=== PATIENT | female | born 1960 | race American Indian/Alaskan Native ===

== ENCOUNTER 2017-04-05 01:56 | Emergency (ER) | payer OTHER ==
[2017-04-05] MEDS ORDERED: Sodium Chloride 0.9% 1,000 ML IV ONE (02:07)
[2017-04-05] MEDS ORDERED: Ondansetron 4 MG/2 ML SDV IVPUSH ONE (02:07)
--- NOTE | 2017-04-05 02:09 | EDM.PDOC ---
ED HPI GENERAL MEDICAL PROBLEM - General Chief Complaint: Gastrointestinal Problem Stated Complaint: VOMITING AND DIARRHEA Time Seen by Provider: 04/05/17 02:09 Source of Information: Reports: Patient - History of Present Illness INITIAL COMMENTS - FREE TEXT/NARRATIVE: HISTORY AND PHYSICAL: History of present illness: [Patient presents with nausea vomiting diarrhea which began several hours after eating pizza, she attributes this to the pizza she has no fever chills sweats no chest pain shortness breath headache dizziness palpitation no bowel or urine symptoms Symptoms began at 7 PM tonight she states she has had too numerous to count watery stools and 4-8 episodes of vomiting Continued nausea on her arrival this is resolved since Zofran ] Review of systems: As per history of present illness and below otherwise all systems reviewed and negative. Past medical history: As per history of present illness and as reviewed below otherwise noncontributory. Surgical history: As per history of present illness and as reviewed below otherwise noncontributory. Social history: No reported history of drug or alcohol abuse. Family history: As per history of present illness and as reviewed below otherwise noncontributory. Physical exam: HEENT: Atraumatic, normocephalic, pupils reactive, negative for conjunctival pallor or scleral icterus, mucous membranes moist, throat clear, neck supple, nontender, trachea midline. Lungs: Clear to auscultation, breath sounds equal bilaterally, chest nontender. Heart: S1S2, regular, negative for clicks, rubs, or JVD. Abdomen: Soft, nondistended, nontender. Negative for masses or hepatosplenomegaly. Negative for costovertebral tenderness. Pelvis: Stable nontender. Genitourinary: Deferred. Rectal: Deferred. Extremities: Atraumatic, negative for cords or calf pain. Neurovascular unremarkable. Neuro: Awake, alert, oriented. Cranial nerves II through XII unremarkable. Cerebellum unremarkable. Motor and sensory unremarkable throughout. Exam nonfocal. Diagnostics: [CBC CMP amylase lipase UA with culture ] Therapeutics: [1 L normal saline bolus Zofran 8 mg IV Proton X 80 mg IV ] Impression: [Gastroenteritis Nausea vomiting diarrhea] Definitive disposition and diagnosis as appropriate pending reevaluation and review of above. - Related Data Allergies Allergy/AdvReac Type Severity Reaction Status Date / Time No Known Allergies Allergy Verified 04/05/17 02:08 Home Meds: Home Meds Albuterol Sulfate [Albuterol Sulfate HFA] 1 - 2 inh INH ASDIRECTED 06/11/14 [ History] Calcium Carbonate [Calcium] 600 mg PO 04/05/17 [History] Magnesium 250 mg PO 04/05/17 [History] Topiramate [Topiramate ER] 25 mg PO 04/05/17 [History] Social & Family History - Tobacco Use Smoking Status *Q: Never Smoker Years of Tobacco use: 40 Used Tobacco, but Quit: Yes - Alcohol Use Days Per Week of Alcohol Use: 1 Number of Drinks Per Day: 6 Total Drinks Per Week: 6 - Recreational Drug Use Recreational Drug Use: No Drug Use in Last 12 Months: No ED ROS GENERAL - Review of Systems Review Of Systems: ROS reveals no pertinent complaints other than HPI. ED EXAM, GENERAL - Physical Exam Exam: See Below Course - Vital Signs Last Recorded V/S: Last Vital Signs Temp 97.0 F 04/05/17 02:10 Pulse 95 04/05/17 02:10 Resp 16 04/05/17 02:10 BP 128/90 04/05/17 02:10 Pulse Ox 95 04/05/17 02:10 - Orders/Labs/Meds Orders: Active Orders 24 hr Category Date Time Status CULTURE URINE [RM] Stat Lab 04/05/17 02:38 Received Labs: Laboratory Tests 04/05/17 04/05/17 04/05/17 Range/Units 02:38 02:38 02:38 WBC 7.26 (4.0-11.0) K/uL RBC 4.46 (4.30-5.90) M/uL Hgb 13.8 (12.0-16.0) g/dL Hct 40.7 (36.0-46.0) % MCV 91.3 (80.0-98.0) fL MCH 30.9 (27.0-32.0) pg MCHC 33.9 (31.0-37.0) g/dL RDW Std Deviation 45.3 (28.0-62.0) fl RDW Coeff of Massiel 14 (11.0-15.0) % Plt Count 185 (150-400) K/uL MPV 9.60 (7.40-12.00) fL Neut % (Auto) 88.4 H (48.0-80.0) % Lymph % (Auto) 6.3 L (16.0-40.0) % [place] % (Auto) 4.1 (0.0-15.0) % Eos % (Auto) 1.1 (0.0-7.0) % Baso % (Auto) 0.1 (0.0-1.5) % Neut # (Auto) 6.4 H (1.4-5.7) K/uL Lymph # (Auto) 0.5 L (0.6-2.4) K/uL Calvert # (Auto) 0.3 (0.0-0.8) K/uL Eos # (Auto) 0.1 (0.0-0.7) K/uL Baso # (Auto) 0.0 (0.0-0.1) K/uL Nucleated RBC % 0.0 /100WBC Nucleated RBCs # 0 K/uL Sodium 141 (136-146) mmol/L Potassium 4.2 (3.5-5.1) mmol/L Chloride 108 (98-110) mmol/L Carbon Dioxide 24 (21-31) mmol/L BUN 19 (6.0-23.0) mg/dL Creatinine 0.9 (0.6-1.5) mg/dL Est Cr Clr Drug Dosing 66.12 mL/min Estimated GFR (MDRD) > 60.0 ml/min Glucose 105 (60-110) mg/dL Calcium 9.3 (8.8-10.8) mg/dL Total Bilirubin 0.5 (0.1-1.5) mg/dL AST 21 (5-40) IU/L ALT 16 (8-54) IU/L Alkaline Phosphatase 60 (40-150) Total Protein 8.3 H (6.0-8.0) g/dL Albumin 4.4 (3.5-5.0) g/dL Globulin 3.9 H (2.0-3.5) g/dL Albumin/Globulin Ratio 1.1 L (1.3-2.8) Amylase 48 (10-90) U/L Lipase 30 (7-80) U/L Urine Color YELLOW Urine Appearance HAZY Urine pH 5.5 (5.0-8.0) Ur Specific [place] 1.025 (1.001-1.035) Urine Protein NEGATIVE (NEGATIVE) mg/dL Urine Glucose (UA) NEGATIVE (NEGATIVE) mg/dL Urine Ketones NEGATIVE (NEGATIVE) mg/dL Urine Occult Blood MODERATE (NEGATIVE) Urine Nitrite NEGATIVE (NEGATIVE) Urine Bilirubin NEGATIVE (NEGATIVE) Urine Urobilinogen 0.2 (<2.0) EU/dL Ur Leukocyte Esterase MODERATE (NEGATIVE) Urine RBC 1-2 (0-2/HPF) Urine WBC 3-5 (0-5/HPF) Ur Epithelial Cells FEW (NONE-FEW) Urine Bacteria FEW (NEGATIVE) Urinalysis Comment Meds: Medications Discontinued Medications Generic Name Dose Route Start Last Admin Trade Name Freq PRN Reason Stop Dose Admin Sodium Chloride 1,000 mls @ 999 mls/hr 04/05/17 02:07 04/05/17 02:41 Normal Saline IV 04/05/17 03:07 999 mls/hr STAT ONE Administration Ondansetron HCl 8 mg 04/05/17 02:07 04/05/17 02:41 Zofran IVPUSH 04/05/17 02:08 8 mg ONETIME ONE Administration Pantoprazole Sodium 80 mg 04/05/17 02:55 04/05/17 03:02 Protonix Iv IVPUSH 04/05/17 02:56 80 mg .BOLUS ONE Administration Departure - Departure Time of Disposition: 03:45 Disposition: Home, Self-Care 01 Condition: Good Clinical Impression: Gastroenteritis - Discharge Information Referrals: PCP,None [Primary Care Provider] - Forms: ED Department Discharge Additional Instructions: The following information is given to patients seen in the emergency department who are being discharged to home. This information is to outline your options for follow-up care. We provide all patients seen in our emergency department with a follow-up referral. The need for follow-up, as well as the timing and circumstances, are variable depending upon the specifics of your emergency department visit. If you don't have a primary care physician on staff, we will provide you with a referral. We always advise you to contact your personal physician following an emergency department visit to inform them of the circumstance of the visit and for follow-up with them and/or the need for any referrals to a consulting specialist. The emergency department will also refer you to a specialist when appropriate. This referral assures that you have the opportunity for follow-up care with a specialist. All of these measure are taken in an effort to provide you with optimal care, which includes your follow-up. Under all circumstances we always encourage you to contact your private physician who remains a resource for coordinating your care. When calling for follow-up care, please make the office aware that this follow-up is from your recent emergency room visit. If for any reason you are refused follow-up, please contact the [facility] emergency department at and asked to speak to the emergency department charge nurse. - My Orders Last 24 Hours: My Active Orders 04/05/17 02:38 CULTURE URINE [RM] Stat - Assessment/Plan Last 24 Hours: My Active Orders 04/05/17 02:38 CULTURE URINE [RM] Stat
[2017-04-05] MEDS ORDERED: Pantoprazole 40 MG Vial IVPUSH ONE (02:55)
[2017-04-05 03:12] LABS: CHLORIDE,CL 108 mmol/L (98-110); SODIUM,NA 141 mmol/L (136-146)
[2017-04-05 04:06] VITALS: BP 127/83
== END 2017-04-05 04:11 | disposition home or self-care (01) ==
LOC: MW.ED 01:56
DX: K52.9 Noninfective gastroenteritis and colitis, unspecified (principal); Z87.891 Personal history of nicotine dependence
CPT/HCPCS: 36415; 80053; 81001; 82150; 83690; 85025; 87086; 96361; 96374; 96375; 99284; C9113; J2405; J7040; 99283

== ENCOUNTER 2018-08-14 13:30 | Observation (INO) | payer OTHER ==
--- NOTE | 2018-08-14 14:31 | CT ---
CT of the abdomen and pelvis with and without contrast. HISTORY: Right lower quadrant pain TECHNIQUE: Axial CT images were obtained of the abdomen and pelvis before and following administration of 100 mL of Isovue-370 in the left antecubital fossa without complication. Coronal and sagittal reconstructions obtained. FINDINGS: There is atelectasis within the left lung base. No pleural effusion. Tiny cyst within the left hepatic lobe. Focal fatty infiltration near the falciform ligament. The gallbladder, spleen, and pancreas appear normal. Mild nodular thickening of the adrenal glands. There is no bulky retroperitoneal lymphadenopathy or abdominal ascites. The kidneys enhance and function symmetrically without evidence of obstructive uropathy. The large and small bowel are normal in caliber without evidence of obstruction. The appendix is enlarged with periappendiceal stranding and a trace fluid. No evidence of an abscess or perforation at this time. Urinary bladder is minimally filled. Uterine fibroids are noted. No bulky pelvic lymphadenopathy. No suspicious osseous abnormalities identified. IMPRESSION: 1. Acute appendicitis.
[2018-08-14] MEDS ORDERED: cefOXitin 2 GM in Premix Bag 1 BAG IV ONE (15:01)
[2018-08-14] MEDS ORDERED: Propofol 200 MG/20 ML SDV ONE ×2 (15:03)
[2018-08-14] MEDS ORDERED: Succinylcholine 200 MG/10 ML MDV ONE (15:03)
[2018-08-14] MEDS ORDERED: Lidocaine 2% 5 ML SDV ONE (15:03)
[2018-08-14] MEDS ORDERED: fentaNYL 250 MCG/5 ML SDV ONE (15:03)
[2018-08-14] MEDS ORDERED: Midazolam 1 MG/ML 2 ML SDV ONE (15:03)
--- NOTE | 2018-08-14 15:03 | PCM.PREANE ---
Preanesthetic Assessment - Anesthesia/Transfusion/Family Hx Anesthesia History: Prior Anesthesia Without Reaction Other Type of Anesthesia Reaction Comment: Denies any known problem in past, no known family history of problems Family History of Anesthesia Reaction: No - Review of Systems General: No Symptoms Pulmonary: No Symptoms Cardiovascular: No Symptoms Gastrointestinal: Abdominal Pain - Physical Assessment NPO Status Date: 08/14/18 (solid foods <> 24 hr, clear liq within the last hr) ASA Class: 2 Mental Status: Alert & Oriented x3 Airway Class: Mallampati = 2 Dentition: Reports: Bridge (entire maxillary dentition) ROM/Head Extension: Full Lungs: Clear to Auscultation, Normal Respiratory Effort Cardiovascular: Regular Rate, Regular Rhythm - Allergies Allergies/Adverse Reactions: Allergies Allergy/AdvReac Type Severity Reaction Status Date / Time No Known Allergies Allergy Verified 04/05/17 02:08 - Blood Blood Available: No - Anesthesia Plan Pre-Op Medication Ordered: None - Acknowledgements Anesthesia Type Planned: General Anesthesia Pt an Appropriate Candidate for the Planned Anesthesia: Yes Alternatives and Risks of Anesthesia Discussed w Pt/Guardian: Yes Pt/Guardian Understands and Agrees with Anesthesia Plan: Yes Additional Comments: PMH: hx of lung cancer, s/p chemo and rarx, in remission; post menopausal PLAN: get PreAnesthesia Questionnaire HEENT History: Reports: None Cardiovascular History: Reports: None Respiratory History: Reports: None Gastrointestinal History: Reports: None Genitourinary History: Reports: None HISTOLOGY TEACHER History: Reports: None Musculoskeletal History: Reports: None Neurological History: Reports: None Psychiatric History: Reports: None Endocrine/Metabolic History: Reports: None Hematologic History: Reports: None Immunologic History: Reports: None Oncologic (Cancer) History: Reports: Lung Dermatologic History: Reports: None - Infectious Disease History Infectious Disease History: Reports: None - Past Surgical History Head Surgeries/Procedures: Reports: None HEENT Surgical History: Reports: None Female Surgical History: Reports: None - HOME MEDS Home Medications: Home Meds Albuterol Sulfate [Albuterol Sulfate HFA] 1 - 2 inh INH ASDIRECTED 06/11/14 [ History] Calcium Carbonate [Calcium] 600 mg PO 04/05/17 [History] Magnesium 250 mg PO 04/05/17 [History] Topiramate [Topiramate ER] 25 mg PO 04/05/17 [History]
[2018-08-14] MEDS ORDERED: Rocuronium 100 MG/10 ML MDV ONE (15:05)
[2018-08-14] MEDS ORDERED: Octyl 2-Cyanoacrylate 1 Tube ONE (15:06)
[2018-08-14] MEDS ORDERED: Bupivacaine 25%/EPINEPHrine/PF 30 ML ONE (15:07)
[2018-08-14] MEDS ORDERED: cefOXitin 1 GM Vial ONE ×2 (15:20→15:26)
[2018-08-14] MEDS ORDERED: Dexamethasone 4 MG/ML 5 ML MDV ONE (15:30)
[2018-08-14] MEDS ORDERED: Ondansetron 4 MG/2 ML SDV ONE (15:35)
[2018-08-14] MEDS ORDERED: Glycopyrrolate 0.2 MG/ML SDV ONE (15:46)
[2018-08-14] MEDS ORDERED: Neostigmine Methylsulfate 1 MG/ML 5 ML Syringe ONE (15:46)
[2018-08-14] MEDS ORDERED: fentaNYL 100 MCG/2 ML SDV IVPUSH PRN (15:57)
[2018-08-14] MEDS ORDERED: Ketorolac 30 MG/ML SDV ONE (16:38)
[2018-08-14] MEDS ORDERED: Ondansetron 4 MG/2 ML SDV IVPUSH PRN (17:32)
[2018-08-14] MEDS ORDERED: Docusate Sodium 100 MG Cap PO PRN (17:33)
--- NOTE | 2018-08-14 17:42 | PCM.OPNOTE ---
- General Post-Op/Procedure Note Date of Surgery/Procedure: 08/14/18 Operative Procedure(s): lap appendectomy Findings: appendix is completely engulfed by surrounding organs, and necrotic on proximal 1/2; gross perforation is not observed; [id number] Pre Op Diagnosis: acute appendicitis Post-Op Diagnosis: Same Anesthesia Technique: General ET Tube Primary Surgeon: Modesto Sebastian Pathology: sent Complications: None Condition: Good Free Text/Narrative:: Intake & Output 08/14/18 08/14/18 08/14/18 06:59 14:59 22:59 Output Total 100 Balance -100
[2018-08-14] MEDS ORDERED: Morphine 2 MG/ML Syringe IV PRN (17:45)
[2018-08-14] MEDS ORDERED: cefOXitin 1 GM in Premix Bag 1 BAG IV SCH (17:45)
--- NOTE | 2018-08-14 17:45 | PCM.SN ---
- Free Text/Narrative Note: pt seen, chart reviewed; ct > acute appendicitis; pt would benefit from urgent surgery for appendectomy; r/b dw pt re bleeding/infection/damaged to nearby organs/postop course; pt concurred and proceed; ivf/abx/consent > lap appendectomy, poss open; [id number]
--- NOTE | 2018-08-14 17:58 | PCM.POSTAN ---
POST ANESTHESIA ASSESSMENT - MENTAL STATUS Mental Status: Alert, Oriented - VITAL SIGNS SaO2: 100 (on 2l/nc sats 92% on room air) - RESPIRATORY Respiratory Status: Supplemental Oxygen Free Text/Narrative:: 2l/nc - CARDIOVASCULAR CV Status: Pulse Rate WNL, Blood Pressure Stable - POST OP HYDRATION Hydration Status: Adequate & Stable
[2018-08-14] MEDS: Lactated Ringers 1,000 ML IV SCH (18:39)
[2018-08-14] MEDS: cefOXitin 1 GM in Premix Bag 1 BAG IV SCH (21:50)
[2018-08-14] MEDS: Acetaminophen/oxyCODONE 325-5 MG Tab PO PRN (21:55)
--- NOTE | 2018-08-15 00:12 | OR ---
SURGEON: Modesto Sebastian MD DATE OF PROCEDURE: 08/14/2018 PREOPERATIVE DIAGNOSIS: Acute appendicitis. POSTOPERATIVE DIAGNOSIS: Acute appendicitis. PROCEDURE PERFORMED: 1. Laparoscopic appendectomy. 2. Insertion of GISSELLE drain. PRIMARY SURGEON: Modesto Sebastian MD COMPLICATION: None. FINDINGS: Appendix is severely engulfed by surrounding organs into like a meatball, makes it very challenging for dissection. Proximal half is necrotic. DESCRIPTION OF PROCEDURE: The patient was taken to the operating room and placed in the supine position. Following induction of general endotracheal anesthesia, the patient's abdomen was prepped and draped in the sterile fashion. A time-out has been called. The patient was identified. The procedure was identified. The antibiotics were identified. The procedure then proceeded. The abdomen was prepped and draped in a standard fashion. After assessment of appropriate landmarks, a 12 millimeter trocar was inserted supraumbilically using Optiview and pneumoperitoneum was then achieved. This was followed with placement of 5 millimeter port in the right upper quadrant and another 5 millimeter port infraumbilically. The camera was inserted supraumbilical site and two laparoscopic [place] retractors were then inserted through the other two sites. Following the cecum, the appendix was located. The appendix was then lifted up, and using a GI stapler the appendix was amputated at the base. And using the GI stapler, the mesoappendix was then amputated. The appendix was retrieved by an endoscopic bag and sent for pathologist. This was then followed by re-insertion of the camera to examine the staple line, and hemostasis. The trocars were then removed. The umbilical site was closed with 2-0 Vicryl deep stitch and 4 -0 Vicryl and Dermabond; the other 2 5 mm port sites were closed with 4-0 Vicryl and Dermabond. Intraoperative findings as dictated above. The wound was closed with skin staple, and a 10 flat GISSELLE drain has been inserted on the low pubic trocar site to monitor intraabdominal change as the patient is prone to have an intraabdominal abscess because of the nasty appendix. The patient was then awakened, extubated, and transferred to the recovery room in hemodynamically stable condition. Prior to closing, sponge count and instrument count was correct. Dr. Sebastian was present throughout the whole procedure. As always, thank you for the kind referral. POSTOPERATIVE PLAN: The patient will be on antibiotic at least for 1 week as she would be at risk for intraabdominal abscess. YOJANA / JESSICA /[id number]
[2018-08-15] MEDS: Lactated Ringers 1,000 ML IV SCH ×3 (01:30→20:16)
[2018-08-15] MEDS: cefOXitin 1 GM in Premix Bag 1 BAG IV SCH ×4 (02:41→21:38)
[2018-08-15] MEDS: Acetaminophen/oxyCODONE 325-5 MG Tab PO PRN ×3 (06:28→19:14)
--- NOTE | 2018-08-15 08:39 | CONS ---
DATE OF CONSULTATION: 08/14/2018 DATE OF : 1960 PRIMARY CARE PHYSICIAN: Unknown PCP Consult from Dr. Ríos in [place]. CONSULTING QUESTION: Acute appendicitis. HISTORY OF PRESENT ILLNESS: The patient is a 58-year-old lady complaining of 4-day history of a gradual onset of right lower quadrant pain. Pain intensified and sought help with primary care doctor at [place] and subsequently got a CT scan over here and CAT scan shows acute appendicitis and Surgery was then consulted. The patient remarked that the pain has been getting much better since coming to the hospital, which is around 20 miles from the clinic. Otherwise, during the gradually increasing pain, pain has been as bad as 10/10 on pain scale. Denied prior episode, and the patient has been drinking water. ALLERGIES: Please refer to nursing for details. MEDICATIONS: Please refer to nursing for details. SOCIAL HISTORY: No smoking. No alcohol. PAST MEDICAL HISTORY: Significant for no diabetes, VA, CVA, hypertension. The patient has lung cancer on the right side, status post chemotherapy and radiation therapy. FAMILY HISTORY: Noncontributory. PHYSICAL EXAMINATION: GENERAL: A very pleasant lady, smiled to the doctor, able to walk around, in no acute distress. HEENT: Normocephalic and atraumatic. Sclerae anicteric. LUNGS: Clear to auscultation. HEART: Regular rate and rhythm. ABDOMEN: Soft, nondistended. No pulsating tender midline abdominal structure. Exquisite tenderness in the right lower quadrant. No peritoneal sign. Rovsing sign is positive. LABORATORY DATA: White count is 13,000, per referring doctor. IMPRESSION/PLAN: Acute appendicitis and would benefit from timely surgery. Risks and benefits discussed with the patient including bleeding, infection, damage to nearby organ, and if it is perforated or severely contaminated, we will put a drain in after the surgery. The patient is aware of the postop course and concurred to proceed as planned. As always, thank you for the kind referral. YOJANA / JESSICA /[id number]
[2018-08-15] MEDS ORDERED: Fluconazole 100 MG Tab PO ONE (09:00)
--- NOTE | 2018-08-15 10:10 | PCM.SURGPN ---
- General Info Date of Service: 08/15/18 Functional Status: Reports: Pain Controlled (still hurting 8 on pain scale) - Patient Data Vitals - Most Recent: Last Vital Signs Temp 97.9 F 08/15/18 07:44 Pulse 72 08/15/18 07:44 Resp 18 08/15/18 07:44 BP 92/63 08/15/18 07:44 Pulse Ox 94 L 08/15/18 07:44 Weight - Most Recent: 207 lb 6.4 oz I&O - Last 24 Hours: Intake & Output 08/14/18 08/15/18 08/15/18 22:59 06:59 14:59 Intake Total 1250 1647 50 Output Total 200 570 Balance 1050 1077 50 Med Orders - Current: Current Medications Docusate Sodium (Colace) 100 mg PO DAILY PRN PRN Reason: Constipation Fentanyl (Sublimaze) 50 mcg IVPUSH .Q5MIN PRN PRN Reason: Pain Lactated Ringer's (Ringers, Lactated) 1,000 mls @ 125 mls/hr IV ASDIRECTED [facility] Last Admin: 08/15/18 01:30 Dose: 125 mls/hr Lactated Ringer's (Ringers, Lactated) 1,000 mls @ 125 mls/hr IV ASDIRECTED [facility] Last Admin: 08/14/18 18:39 Dose: 125 mls/hr Cefoxitin Sodium 1 gm/ Premix 50 mls @ 100 mls/hr IV Q6H [facility] Last Admin: 08/15/18 09:04 Dose: 100 mls/hr Morphine Sulfate (Morphine) 2 mg IV Q4H PRN PRN Reason: Pain Ondansetron HCl (Zofran) 4 mg IVPUSH Q8H PRN PRN Reason: Nausea/Vomiting Oxycodone/Acetaminophen (Percocet 325-5 Mg) 1 tab PO Q4H PRN PRN Reason: Pain Last Admin: 08/15/18 06:28 Dose: 1 tab Discontinued Medications Cefoxitin Sodium (Mefoxin) Confirm Administered Dose 1 gm .ROUTE .STK-MED ONE Stop: 08/14/18 15:21 Cefoxitin Sodium (Mefoxin) Confirm Administered Dose 2 gm .ROUTE .STK-MED ONE Stop: 08/14/18 15:27 Dexamethasone (Dexamethasone) Confirm Administered Dose 20 mg .ROUTE .STK-MED ONE Stop: 08/14/18 15:31 Fentanyl (Sublimaze) Confirm Administered Dose 250 mcg .ROUTE .STK-MED ONE Stop: 08/14/18 15:04 Fluconazole (Diflucan) 200 mg PO ONETIME ONE Stop: 08/15/18 09:01 Last Admin: 08/15/18 09:02 Dose: 200 mg Glycopyrrolate (Robinul) Confirm Administered Dose 0.2 mg .ROUTE .STK-MED ONE Stop: 08/14/18 15:47 Cefoxitin Sodium 2 gm/ Premix 50 mls @ 100 mls/hr IV ONETIME ONE Stop: 08/14/18 15:30 Last Admin: 08/14/18 18:40 Dose: Not Given Bupivacaine HCl/Epinephrine Bitart (Sensorc Mpf 0.25%-Epi [id number]) Confirm Administered Dose 30 mls @ as directed .ROUTE .STK-MED ONE Stop: 08/14/18 15:08 Cefoxitin Sodium 1 gm/ Premix 50 mls @ 100 mls/hr IV Q6H [facility] Ketorolac Tromethamine (Toradol) Confirm Administered Dose 30 mg .ROUTE .STK- MED ONE Stop: 08/14/18 16:39 Lidocaine (Xylocaine-Mpf 2%) Confirm Administered Dose 5 ml .ROUTE .STK-MED ONE Stop: 08/14/18 15:04 Midazolam HCl (Versed 1 Mg/Ml) Confirm Administered Dose 2 mg .ROUTE .STK-MED ONE Stop: 08/14/18 15:04 Neostigmine Methylsulfate (Neostigmine) Confirm Administered Dose 5 mg .ROUTE .STK-MED ONE Stop: 08/14/18 15:47 Octyl Cyanoacrylate (Dermabond Advance) Confirm Administered Dose 1 applic .ROUTE .STK-MED ONE Stop: 08/14/18 15:07 Ondansetron HCl (Zofran) Confirm Administered Dose 4 mg .ROUTE .STK-MED ONE Stop: 08/14/18 15:36 Propofol (Diprivan 20 Ml) Confirm Administered Dose 200 mg .ROUTE .STK-MED ONE Stop: 08/14/18 15:04 Propofol (Diprivan 20 Ml) Confirm Administered Dose 200 mg .ROUTE .STK-MED ONE Stop: 08/14/18 15:04 Rocuronium Enochs (Zemuron) Confirm Administered Dose 100 mg .ROUTE .STK-MED ONE Stop: 08/14/18 15:06 Succinylcholine Chloride (Quelicin) Confirm Administered Dose 200 mg .ROUTE .STK -MED ONE Stop: 08/14/18 15:04 - Exam General: Alert, Oriented GI/Abdominal Exam: Soft, No Distention (minimal tenderness despite pt called pain of "8" on pain scale) - Problem List Review Problem List Initiated/Reviewed/Updated: Yes - My Orders Last 24 Hours: Active Orders 24 hr Category Date Time Status Admission Status [Patient Status] [ADT] Routine ADT 08/14/18 15:03 Active Communication Order [RC] Q12H Care 08/14/18 17:35 Active Clear Liquid Diet [DIET] Diet 08/14/18 Dinner Active Full Liquid Diet [DIET] Diet 08/15/18 Breakfast Active Acetaminophen/oxyCODONE [Percocet 325-5 MG] Med 08/14/18 17:32 Active 1 tab PO Q4H PRN Docusate Sodium [Colace] Med 08/14/18 17:33 Active 100 mg PO DAILY PRN Lactated Ringers [Ringers, Lactated] 1,000 ml Med 08/14/18 15:15 Active IV ASDIRECTED Lactated Ringers [Ringers, Lactated] 1,000 ml Med 08/14/18 17:45 Active IV ASDIRECTED Morphine Med 08/14/18 17:45 Active 2 mg IV Q4H PRN Ondansetron [Zofran] Med 08/14/18 17:32 Active 4 mg IVPUSH Q8H PRN cefOXitin [Mefoxin in Dextrose,Iso-Osm 1 GM/50 ML] 1 gm Med 08/14/18 21:00 Active Premix Bag 1 bag IV Q6H fentaNYL [Sublimaze] Med 08/14/18 15:57 Active 50 mcg IVPUSH .Q5MIN PRN Medication Orders Docusate Sodium (Colace) 100 mg PO DAILY PRN PRN Reason: Constipation Fentanyl (Sublimaze) 50 mcg IVPUSH .Q5MIN PRN PRN Reason: Pain Lactated Ringer's (Ringers, Lactated) 1,000 mls @ 125 mls/hr IV ASDIRECTED [facility] Last Admin: 08/15/18 01:30 Dose: 125 mls/hr Lactated Ringer's (Ringers, Lactated) 1,000 mls @ 125 mls/hr IV ASDIRECTED [facility] Last Admin: 08/14/18 18:39 Dose: 125 mls/hr Cefoxitin Sodium 1 gm/ Premix 50 mls @ 100 mls/hr IV Q6H [facility] Last Admin: 08/15/18 09:04 Dose: 100 mls/hr Infusion: 08/15/18 03:11 Dose: 100 mls/hr Admin: 08/15/18 02:41 Dose: 100 mls/hr Infusion: 08/14/18 22:20 Dose: 100 mls/hr Admin: 08/14/18 21:50 Dose: 100 mls/hr Morphine Sulfate (Morphine) 2 mg IV Q4H PRN PRN Reason: Pain Ondansetron HCl (Zofran) 4 mg IVPUSH Q8H PRN PRN Reason: Nausea/Vomiting Oxycodone/Acetaminophen (Percocet 325-5 Mg) 1 tab PO Q4H PRN PRN Reason: Pain Last Admin: 08/15/18 06:28 Dose: 1 tab Admin: 08/14/18 21:55 Dose: 1 tab - Assessment Assessment (Free Text/Narrative):: doing well, sandra po, afeb, henri output under 100, ss, will dc late today or tomorrow morning - Plan Plan (Free Text/Narrative):: doing well, sandra po, afeb, henri output under 100, ss, will dc late today or tomorrow morning
[2018-08-15] MEDS ORDERED: diphenhydrAMINE 25 MG Cap PO PRN (15:46)
[2018-08-15] MEDS ORDERED: Bisacodyl 10 MG Supp RECTAL ONE (15:47)
[2018-08-16] MEDS: Acetaminophen/oxyCODONE 325-5 MG Tab PO PRN (03:27)
[2018-08-16] MEDS: cefOXitin 1 GM in Premix Bag 1 BAG IV SCH ×2 (03:28→08:11)
[2018-08-16] MEDS: Lactated Ringers 1,000 ML IV SCH (03:28)
[2018-08-16 07:37] VITALS: BP 89/54
== END 2018-08-16 11:47 | disposition home or self-care (01) ==
LOC: MW.SDS 13:30 → MW.MS 16:46 → UNDOADMOB 08-15 15:51 → MW.SDS 08-15 15:51 → MW.MS 08-15 15:51 → UNDODISOB 08-16 11:47
PROVIDERS: ADMIT Surgery; ATTEND Surgery
DX: K35.80 Unspecified acute appendicitis (principal); Z85.118 Personal history of other malignant neoplasm of bronchus and lung; Z79.899 Other long term (current) drug therapy
CPT/HCPCS: 44960; 74178; 88304; A4217; A9270; C1776; G0378; J0330; J0694; J1100; J1885; J2001; J2250; J2405; J2704; J3010; J3490; J7120

== ENCOUNTER 2020-04-15 07:45 | Day surgery (SDC) | payer OTHER ==
[~2020-04-15 07:45] MED LIST: Lactated Ringers 1,000 ML IV SCH; Midazolam 1 MG/ML 2 ML SDV ONE; Propofol 200 MG/20 ML SDV ONE; Sodium Chloride 0.9% 10 ML SDV IV PRN; Sodium Chloride 0.9% 10 ML Syringe FLUSH PRN; Sodium Chloride 0.9% 2.5 ML Syringe FLUSH PRN
--- NOTE | 2020-04-15 08:19 | PCM.PREANE ---
Preanesthetic Assessment - Anesthesia/Transfusion/Family Hx Anesthesia History: Prior Anesthesia Without Reaction Other Type of Anesthesia Reaction Comment: Denies any known problem in past, no known family history of problems Family History of Anesthesia Reaction: No Transfusion History: No Prior Transfusion(s) Intubation History: Unknown - Review of Systems General: No Symptoms Pulmonary: No Symptoms Cardiovascular: No Symptoms Gastrointestinal: Diarrhea, Other (fecal incontinance) Neurological: No Symptoms Other: Reports: None - Physical Assessment Vital Signs: Last Vital Signs Temp 36.5 C 04/15/20 08:08 Pulse 78 04/15/20 08:08 Resp 16 04/15/20 08:08 BP 111/64 04/15/20 08:08 Pulse Ox 95 04/15/20 08:08 Height: 5 ft 5 in Weight: 91.626 kg ASA Class: 3 Mental Status: Alert & Oriented x3 Airway Class: Mallampati = 2 Dentition: Reports: Normal Dentition, Implants (x6 upper front) Thyro-Mental Finger Breadths: 3 Mouth Opening Finger Breadths: 3 ROM/Head Extension: Full Lungs: Clear to Auscultation, Normal Respiratory Effort Cardiovascular: Regular Rate, Regular Rhythm - Allergies Allergies/Adverse Reactions: Allergies Allergy/AdvReac Type Severity Reaction Status Date / Time No Known Allergies Allergy Verified 04/09/20 09:28 - Blood Blood Available: No - Anesthesia Plan Pre-Op Medication Ordered: None - Acknowledgements Anesthesia Type Planned: MAC Pt an Appropriate Candidate for the Planned Anesthesia: Yes Alternatives and Risks of Anesthesia Discussed w Pt/Guardian: Yes Pt/Guardian Understands and Agrees with Anesthesia Plan: Yes PreAnesthesia Questionnaire HEENT History: Reports: Impaired Vision Other HEENT History: wears glasses, has permanent upper dental bridge Cardiovascular History: Reports: None Respiratory History: Reports: Asthma, Other (See Below) (Covid -19 in november - no oxygen therapy needed. 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: Musculoskeletal History: Reports: Arthritis, Back Pain, Chronic Other Musculoskeletal History: states has hip pain Neurological History: Reports: None Psychiatric History: Reports: None Endocrine/Metabolic History: Reports: Obesity/BMI 30+ (BMI 33.6) Hematologic History: Reports: None Immunologic History: Reports: None Oncologic (Cancer) History: Reports: Lung Other Oncologic History: had Chemo and Radiation in 2010 Dermatologic History: Reports: None - Infectious Disease History Infectious Disease History: Reports: Chicken Pox, Measles, Mumps Other Infectious Disease History: when a child - Past Surgical History Head Surgeries/Procedures: Reports: None HEENT Surgical History: Reports: None Cardiovascular Surgical History: Reports: None Respiratory Surgical History: Reports: Other (See Below) Other Respiratory Surgeries/Procedures: port placement and removal GI Surgical History: Reports: Appendectomy Female Surgical History: Reports: Section Endocrine Surgical History: Reports: None Neurological Surgical History: Reports: None Musculoskeletal Surgical History: Reports: None Dermatological Surgical History: Reports: None - SUBSTANCE USE Tobacco Use Status *Q: Former Tobacco User (quit 2010) Tobacco Use Within Last Twelve Months: No - HOME MEDS Home Medications: Home Meds Diclofenac Sodium [Voltaren] 75 mg PO BID 01/16/20 [History] Etodolac 400 mg PO BID PRN 01/16/20 [History] Fish Oil/Leander-3 Fatty Acids [Fish Oil 1,000 MG] 1 tab PO DAILY 01/16/20 [History] Topiramate 25 mg PO DAILY 01/16/20 [History] Topiramate 50 mg PO BID 01/16/20 [History] carisoprodoL [Carisoprodol] 350 mg PO TID PRN 01/16/20 [History] Acetaminophen/Codeine [Tylenol with Codeine No.3 300MG/30MG] 1 tab PO ASDIRECTED PRN 04/09/20 [History] Esomeprazole Magnesium 40 mg PO DAILY PRN 04/09/20 [History] - CURRENT (IN HOUSE) MEDS Current Meds: Current Medications Lactated Ringer's (Ringers, Lactated) 1,000 mls @ 125 mls/hr IV ASDIRECTED SALINA Sodium Chloride (Saline Flush) 10 ml FLUSH ASDIRECTED PRN PRN Reason: Keep Vein Open Sodium Chloride (Saline Flush) 2.5 ml FLUSH ASDIRECTED PRN PRN Reason: Keep Vein Open Sodium Chloride (Saline Flush) 10 ml FLUSH ASDIRECTED PRN PRN Reason: Keep Vein Open Sodium Chloride (Saline Flush) 2.5 ml FLUSH ASDIRECTED PRN PRN Reason: Keep Vein Open Sodium Chloride (Normal Saline) 10 ml IV ASDIRECTED PRN PRN Reason: IV Use Discontinued Medications Midazolam HCl (Versed 1 Mg/Ml) Confirm Administered Dose 2 mg .ROUTE .STK-MED ONE Stop: 04/15/20 06:55 Propofol (Diprivan 20 Ml) Confirm Administered Dose 600 mg .ROUTE .STK-MED ONE Stop: 04/15/20 06:55
--- NOTE | 2020-04-15 08:45 | PCM.OPNOTE ---
- General Post-Op/Procedure Note Date of Surgery/Procedure: 04/15/20 Operative Procedure(s): Diagnostic colonoscopy with biopsy Findings: Diverticulosis of sigmoid colon, otherwise normal appearing mucosa and terminal ileum Pre Op Diagnosis: Fecal incontinence Post-Op Diagnosis: Diverticulosis Anesthesia Technique: KODAK Primary Surgeon: Zoey Styles Condition: Good
[2020-04-15 09:03] VITALS: BP 107/58; PULSE 62
--- NOTE | 2020-04-15 09:10 | PCM48HPAN ---
Post Anesthesia Note - EVALUATION WITHIN 48HRS OF ANESTHETIC Vital Signs in Normal Range: Yes Patient Participated in Evaluation: Yes Respiratory Function Stable: Yes Airway Patent: Yes Cardiovascular Function Stable: Yes Hydration Status Stable: Yes Pain Control Satisfactory: Yes Nausea and Vomiting Control Satisfactory: Yes Mental Status Recovered: Yes Vital Signs: Last Vital Signs Temp 36.3 C 04/15/20 08:55 Pulse 62 04/15/20 08:55 Resp 14 04/15/20 08:55 BP 107/58 L 04/15/20 08:55 Pulse Ox 97 04/15/20 08:55 - COMMENTS/OBSERVATIONS Free Text/Narrative:: No anesthesia problems
--- NOTE | 2020-04-15 09:11 | PCM.POSTAN ---
POST ANESTHESIA ASSESSMENT - MENTAL STATUS Mental Status: Alert, Oriented - VITAL SIGNS Vital Signs: Last Vital Signs Temp 36.3 C 04/15/20 08:55 Pulse 62 04/15/20 08:55 Resp 14 04/15/20 08:55 BP 107/58 L 04/15/20 08:55 Pulse Ox 97 04/15/20 08:55 - RESPIRATORY Respiratory Status: Respiratory Rate WNL, Airway Patent, O2 Saturation Stable - CARDIOVASCULAR CV Status: Pulse Rate WNL, Blood Pressure Stable - GASTROINTESTINAL GI Status: No Symptoms - PAIN Pain Score: 0 - POST OP HYDRATION Hydration Status: Adequate & Stable - OBSERVATIONS Free Text/Narrative:: No anesthesia problems
--- NOTE | 2020-04-15 12:26 | OR ---
SURGEON: ZOEY STYLES MD DATE OF PROCEDURE: 04/15/2020 PREOPERATIVE DIAGNOSES: Fecal incontinence, change in bowel habits. POSTOPERATIVE DIAGNOSIS: Diverticulosis. PROCEDURE PERFORMED: Diagnostic colonoscopy with biopsy. PRIMARY SURGEON: Zoey Styles MD ANESTHESIA: MAC. INSTRUMENT USED: Olympus colonoscope. EXTENT OF EXAMINATION: To the cecum. PREPARATION: Good. LIMITATIONS: None. INDICATIONS FOR EXAMINATION: The patient is a 60-year-old female who presented to clinic with changes in her bowel habits. She has been having diarrhea associated with fecal incontinence. The patient and I discussed the need for diagnostic colonoscopy. I explained the procedure, expected perioperative course, and the risks. She verbalized understanding and wishes to proceed. PROCEDURE IN DETAIL: The patient was brought to the endoscopy suite and placed in a left lateral decubitus position. A time-out was completed verifying the patient's name, age, date of , allergies, and procedure to be performed. Monitored anesthesia care was induced and continuous oxygen was provided via nasal cannula throughout the procedure. After adequate sedation was achieved, a digital rectal exam was performed. This exam was within normal limits. A well-lubricated colonoscope was inserted into the rectum and advanced under direct visualization to the level of the cecum. The cecum was identified by both visual and anatomic landmarks. A photograph was taken of the cecal cap, however, I was unable to retroflex the scope within the cecum. The scope was then fully withdrawn while examining the color, texture, anatomy, and integrity of the mucosa from the cecum to the anal canal. The colonic mucosa overall appeared normal. Random biopsies were taken of the ascending colon, sigmoid colon, and the rectum and sent to pathology for histologic review. The patient was noted to have mild sigmoid diverticulosis. The scope was then brought to the rectum and retroflexed to allow visualization of the anal canal opening. This appeared normal and a photograph was taken. Scope was straightened out and fully withdrawn. The cecum to anus time was 9 minutes. The patient tolerated the procedure well and was transferred to the PACU in stable condition. ENDOSCOPIC DIAGNOSIS: Diverticulosis. RECOMMENDATIONS: We will follow up with the patient in clinic in 2 weeks. In the meantime, I encouraged her to increase her intake of fiber and to try Imodium as needed for diarrhea. BRIDGETTE / JESSICA /[id number]
== END 2020-04-15 09:34 | disposition home or self-care (01) ==
LOC: MW.SDS 07:45
PROVIDERS: ATTEND Surgery
DX: K63.89 Other specified diseases of intestine (principal); K57.30 Diverticulosis of large intestine without perforation or abscess without bleeding; J45.909 Unspecified asthma, uncomplicated; E78.5 Hyperlipidemia, unspecified; E66.9 Obesity, unspecified; Z68.33 Body mass index [BMI] 33.0-33.9, adult; Z86.16 Personal history of COVID-19; Z79.899 Other long term (current) drug therapy; Z90.49 Acquired absence of other specified parts of digestive tract; Z98.890 Other specified postprocedural states; Z87.891 Personal history of nicotine dependence
CPT/HCPCS: 45380; J2250; J2704; J7120; 00811; 88305

== ENCOUNTER 2020-05-30 13:14 | Emergency (ER) | payer OTHER ==
[2020-05-30] MEDS ORDERED: Ketorolac 60 MG/2 ML SDV IM ONE (13:59)
--- NOTE | 2020-05-30 14:00 | EDM.PDOC ---
ED HPI GENERAL MEDICAL PROBLEM - General Chief Complaint: Back Pain or Injury Stated Complaint: PAIN IN RT HIP Time Seen by Provider: 05/30/20 13:27 Source of Information: Reports: Patient History Limitations: Reports: No Limitations - History of Present Illness INITIAL COMMENTS - FREE TEXT/NARRATIVE: HISTORY AND PHYSICAL: History of present illness: Patient is a 60-year-old female who presents to the ED today with concern of right hip/right buttock pain that began 2 hours prior to arrival to the emergency room. Patient describes the pain as sharp and states that she can f eel it more when she walks and improves with rest. Patient denies any trauma or injury to the hip or area. Patient states that she does have a history of "hip issues" in the past but is not certain what this means. Patient denies any trauma or injury. Patient denies any associative symptoms. Patient states she has not taken anything for her pain today. Patient denies any loss or retention of bowel bladder function or saddle anesthesia. Patient denies fever, chills, chest pain, shortness of breath, or cough. Denies headache, neck stiff ness, change in vision, syncope, or near syncope. Denies nausea, vomiting, abdominal pain, diarrhea, constipation, or dysuria. Has not noted any blood in urine or stool. Patient has been eating and drinking appropriately. Review of systems: As per history of present illness and below otherwise all systems reviewed and negative. Past medical history: As per history of present illness and as reviewed below otherwise noncontributory. Surgical history: As per history of present illness and as reviewed below otherwise noncontributory. Social history: See social history for further information Family history: As per history of present illness and as reviewed below otherwise noncontributory. Physical exam: General: Patient is alert, oriented, and in no acute distress. Patient sitting comfortably on exam table. Vitals stable and reviewed by me. HEENT: Atraumatic, normocephalic, pupils equal and reactive bilaterally, negative for conjunctival pallor or scleral icterus, mucous membranes moist, TMs normal bilaterally, throat clear, neck supple, nontender, trachea midline. No drooling or trismus noted. No meningeal signs. No hot potato voice noted. Lungs: Clear to auscultation, breath sounds equal bilaterally, chest nontender. Heart: S1S2, regular rate and rhythm without overt murmur Abdomen: Soft, nondistended, nontender. Negative for masses or hepatosplenomegaly. Negative for costovertebral tenderness. Pelvis: Stable nontender. Genitourinary: Deferred. Rectal: Deferred. Skin: Intact, warm, dry. No lesions or rashes noted. Extremities: No obvious deformity of the complete spine. No step-offs, crepitus, or point tenderness to palpation of the complete spine. Patient has full range of motion of bilateral upper and lower extremities without pain or deficit. Dorsalis pedis and posterior tibial pulses are grossly intact bilaterally with capillary refill less than 2 seconds. Patient does have pain with palpation of the right sided sacroiliac joint which she states reproduces her pain. There is no erythema, rashes, lesions, or skin changes noted of the right hip. Otherwise, atraumatic, negative for cords or calf pain. Neurovascular unremarkable. Neuro: Awake, alert, oriented. Cranial nerves II through XII unremarkable. Cerebellum unremarkable. Motor and sensory unremarkable throughout. Exam nonfocal. Notes: On initial exam, patient was vitally stable and well-appearing. She has full range of motion of all of her extremities. She does have reproducible pain on exam with palpation of her SI joint. I did offer x-ray imaging of patient's hip and pelvis but she declines at this time due to cost of imaging. Patient is excepting of receiving Toradol IM injection for pain. Strict return precautions thoroughly discussed with patient. Discussed importance for follow-up with a primary care provider. Voices understanding and is agreeable to plan of care. Denies any further questions or concerns at this time. Diagnostics: Hip and pelvic x-ray offered but patient declines Therapeutics: Toradol Prescription: None Impression: Right hip pain Plan: 1. Rest, ice, elevate the affected extremity. You can apply ice 15 minutes on, 15 minutes off. 2. Tylenol and/or Ibuprofen as directed for pain management or discomfort. 3. Follow up with a primary care provider as discussed. Return to the ED as needed and as discussed. Definitive disposition and diagnosis as appropriate pending reevaluation and re view of above. - Related Data Allergies Allergy/AdvReac Type Severity Reaction Status Date / Time No Known Allergies Allergy Verified 05/30/20 13:51 Home Meds: Home Meds Topiramate 50 mg PO BID 11/18/20 [History] carisoprodoL [Carisoprodol] 350 mg PO TID PRN 01/16/20 [History] Past Medical History HEENT History: Reports: Impaired Vision Other HEENT History: wears glasses, has permanent upper dental bridge Cardiovascular History: Reports: None Respiratory History: Reports: Asthma, Other (See Below) (Covid -19 in november - no oxygen therapy needed. 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: Musculoskeletal History: Reports: Arthritis, Back Pain, Chronic Other Musculoskeletal History: states has hip pain Neurological History: Reports: None Psychiatric History: Reports: None Endocrine/Metabolic History: Reports: Obesity/BMI 30+ (BMI 33.6) Hematologic History: Reports: None Immunologic History: Reports: None Oncologic (Cancer) History: Reports: Lung Other Oncologic History: had Chemo and Radiation in 2010 Dermatologic History: Reports: None - Infectious Disease History Infectious Disease History: Reports: Chicken Pox, Measles, Mumps Other Infectious Disease History: when a child - Past Surgical History Head Surgeries/Procedures: Reports: None HEENT Surgical History: Reports: None Cardiovascular Surgical History: Reports: None Respiratory Surgical History: Reports: Other (See Below) Other Respiratory Surgeries/Procedures: port placement and removal GI Surgical History: Reports: Appendectomy Female Surgical History: Reports: Section Endocrine Surgical History: Reports: None Neurological Surgical History: Reports: None Musculoskeletal Surgical History: Reports: None Dermatological Surgical History: Reports: None Social & Family History - Family History Family Medical History: No Pertinent Family History ED ROS GENERAL - Review of Systems Review Of Systems: Comprehensive ROS is negative, except as noted in HPI. ED EXAM, GENERAL - Physical Exam Exam: See Below (See dictation) Course - Orders/Labs/Meds Meds: Medications Discontinued Medications Generic Name Dose Route Start Last Admin Trade Name Freq PRN Reason Stop Dose Admin Ketorolac Tromethamine 60 mg 05/30/20 13:59 05/30/20 14:15 Ketorolac 60 Mg/2 Ml Sdv IM 05/30/20 14:00 60 mg ONETIME ONE Administration Departure - Departure Time of Disposition: 13:59 Disposition: Home, Self-Care 01 Clinical Impression: Right hip pain - Discharge Information Instructions: Joint Pain, [id number] Referrals: Mirtha Ríos MD [Primary Care Provider] - Forms: ED Department Discharge Additional Instructions: the following information is given to patients seen in the emergency department who are being discharged to home. This information is to outline your options for follow-up care. We provide all patients seen in our emergency department with a follow-up referral. The need for follow-up, as well as the timing and circumstances, are variable depending upon the specifics of your emergency department visit. If you don't have a primary care physician on staff, we will provide you with a referral. We always advise you to contact your personal physician following an emergency department visit to inform them of the circumstance of the visit and for follow-up with them and/or the need for any referrals to a consulting specialist. The emergency department will also refer you to a specialist when appropriate. This referral assures that you have the opportunity for follow-up care with a specialist. All of these measure are taken in an effort to provide you with optimal care, which includes your follow-up. Under all circumstances we always encourage you to contact your private physician who remains a resource for coordinating your care. When calling for follow-up care, please make the office aware that this follow-up is from your recent emergency room visit. If for any reason you are refused follow-up, please contact the [facility] Emergency Department at and asked to speak to the emergency department charge nurse. [facility] [address] [place] [id number] [facility] [address] [place] [id number] 1. Rest, ice, elevate the affected extremity. You can apply ice 15 minutes on, 15 minutes off. 2. Tylenol and/or Ibuprofen as directed for pain management or discomfort. 3. Follow up with a primary care provider as discussed. Return to the ED as needed and as discussed.
[2020-05-30 19:32] VITALS: BP 105/78; PULSE 80
== END 2020-05-30 14:34 | disposition home or self-care (01) ==
LOC: MW.ED 13:14
DX: M25.551 Pain in right hip (principal); J45.909 Unspecified asthma, uncomplicated; E66.9 Obesity, unspecified; Z68.36 Body mass index [BMI] 36.0-36.9, adult; Z79.899 Other long term (current) drug therapy
CPT/HCPCS: 96372; 99283; J1885; 99282

== ENCOUNTER 2021-07-30 06:32 | Day surgery (SDC) | payer OTHER ==
[2021-07-30] MEDS ORDERED: Lactated Ringers 1,000 ML IV SCH (07:00)
[2021-07-30] MEDS ORDERED: Scopolamine 1.5 MG Transdermal Patch ONE (07:16)
[2021-07-30] MEDS ORDERED: propofoL 100 ML ONE (07:28)
[2021-07-30] MEDS ORDERED: fentaNYL 100 MCG/2 ML SDV ONE (07:29)
[2021-07-30] MEDS ORDERED: HYDROmorphone 1 MG/ML Syringe IVPUSH PRN (07:36)
[2021-07-30] MEDS ORDERED: Ondansetron 4 MG/2 ML SDV IVPUSH PRN ×2 (07:36→09:06)
[2021-07-30] MEDS ORDERED: Naloxone 0.4 MG/ML SDV IVPUSH PRN (07:36)
[2021-07-30] MEDS ORDERED: Metoclopramide 10 MG/2 ML SDV IVPUSH PRN (07:36)
[2021-07-30] MEDS ORDERED: Morphine 4 MG/ML VIAL IVPUSH PRN ×2 (07:36→09:06)
[2021-07-30] MEDS ORDERED: fentaNYL 100 MCG/2 ML SDV IVPUSH PRN (07:36)
[2021-07-30] MEDS ORDERED: Albuterol 0.083% 2.5 MG/3 ML Neb Soln NEB PRN (07:36)
[2021-07-30] MEDS ORDERED: ceFAZolin 1 GM Vial ONE ×2 (08:11)
[2021-07-30] MEDS ORDERED: Dexamethasone 4 MG/ML 5 ML MDV ONE (08:11)
[2021-07-30] MEDS ORDERED: Sugammadex Sodium 200 MG/2 ML VIAL ONE (08:12)
[2021-07-30] MEDS ORDERED: Ondansetron 4 MG/2 ML SDV ONE ×2 (08:12)
[2021-07-30] MEDS ORDERED: Rocuronium 100 MG/10 ML MDV ONE (08:12)
[2021-07-30] MEDS ORDERED: Fluorescein 5 ML Vial ONE (08:17)
[2021-07-30] MEDS ORDERED: Lidocaine 2% 100 MG/5 ML Syringe ONE (08:19)
[2021-07-30] MEDS ORDERED: Ketorolac 30 MG/ML SDV ONE (08:32)
[2021-07-30] MEDS ORDERED: Promethazine 25 MG/ML SDV IM PRN (09:06)
[2021-07-30] MEDS ORDERED: Ketorolac 30 MG/ML SDV IVPUSH ONE (09:06)
[2021-07-30] MEDS ORDERED: Acetaminophen/oxyCODONE 325-5 MG Tab PO PRN ×2 (09:06)
[2021-07-30] MEDS ORDERED: Ketorolac 30 MG/ML SDV IVPUSH PRN (14:00)
[2021-07-31 07:19] VITALS: BP 105/64; PULSE 76
[2021-07-31 07:38] LABS: BLOOD UREA NITROGEN,BUN 16 mg/dL (7.0-18.0); CARBON DIOXIDE,CO2 26.4 mmol/L (21.0-32.0); CHLORIDE,CL 105 mmol/L (98-107); GLUCOSE RANDOM 130 mg/dL (74-106); POTASSIUM,K 3.8 mmol/L (3.5-5.1); SODIUM,NA 140 mmol/L (136-145)
== END 2021-07-31 09:25 | disposition home or self-care (01) ==
LOC: MW.SDS 06:32 → MW.OB 09:19 → MW.SDS 07-31 09:25
PROVIDERS: ATTEND Obstetrics & Gynecology
DX: N81.10 Cystocele, unspecified (principal); R32 Unspecified urinary incontinence; J45.909 Unspecified asthma, uncomplicated; H54.7 Unspecified visual loss; E78.5 Hyperlipidemia, unspecified; E66.9 Obesity, unspecified; Z87.891 Personal history of nicotine dependence; Z79.899 Other long term (current) drug therapy; Z68.35 Body mass index [BMI] 35.0-35.9, adult
CPT/HCPCS: 36415; 57240; 57288; 80048; 85025; A9270; C1771; J0131; J0690; J1100; J1170; J2704; J3490; J7030; J7120; J1885; J2405; J3010

== ENCOUNTER 2022-06-09 12:08 | Day surgery (SDC) | payer OTHER ==
[~2022-06-09 12:08] MED LIST changes: -Midazolam 1 MG/ML 2 ML SDV ONE; -Propofol 200 MG/20 ML SDV ONE; -Sodium Chloride 0.9% 10 ML SDV IV PRN; -Sodium Chloride 0.9% 10 ML Syringe FLUSH PRN; -Sodium Chloride 0.9% 2.5 ML Syringe FLUSH PRN
[2022-06-09] MEDS ORDERED: Lidocaine 2% 5 ML SDV ONE (13:34)
[2022-06-09] MEDS ORDERED: Propofol 200 MG/20 ML SDV ONE (13:35)
[2022-06-09 14:10] VITALS: PULSE 66
[2022-06-09 14:25] VITALS: BP 108/63
== END 2022-06-09 14:40 | disposition home or self-care (01) ==
LOC: MW.SDS 12:08
PROVIDERS: ATTEND Surgery
DX: K29.50 Unspecified chronic gastritis without bleeding (principal); K40.90 Unilateral inguinal hernia, without obstruction or gangrene, not specified as recurrent; K21.9 Gastro-esophageal reflux disease without esophagitis; K44.9 Diaphragmatic hernia without obstruction or gangrene; K22.89 Other specified disease of esophagus; J45.909 Unspecified asthma, uncomplicated; E78.5 Hyperlipidemia, unspecified; E66.9 Obesity, unspecified; E78.00 Pure hypercholesterolemia, unspecified; Z68.33 Body mass index [BMI] 33.0-33.9, adult; Z20.822 Contact with and (suspected) exposure to COVID-19; Z87.19 Personal history of other diseases of the digestive system; Z79.899 Other long term (current) drug therapy; Z85.118 Personal history of other malignant neoplasm of bronchus and lung; Z87.891 Personal history of nicotine dependence; Z90.49 Acquired absence of other specified parts of digestive tract
CPT/HCPCS: 43239; J2704; J7120; 00731; J3490

== ENCOUNTER 2022-07-28 06:41 | Day surgery (SDC) | payer OTHER ==
[~2022-07-28 06:41] MED LIST changes: +Acetaminophen 1,000 MG in Premix Bag 1 BAG IV SCH; +Pregabalin 75 MG Cap PO SCH; +Scopolamine 1.5 MG Transdermal Patch TOP ONE; +cefOXitin 2 GM in Sodium Chloride 0.9% 50 ML IV SCH
[2022-07-28] MEDS ORDERED: Bupivacaine 0.25% 30 ML SDV ONE (07:19)
[2022-07-28] MEDS ORDERED: Bupivacaine 25%/EPINEPHrine/PF 30 ML ONE (07:37)
[2022-07-28] MEDS ORDERED: Ropivacaine 0.5% 5 MG/ML 30 ML SDV ONE (07:37)
[2022-07-28] MEDS ORDERED: Albuterol 0.083% 2.5 MG/3 ML Neb Soln NEB PRN (07:38)
[2022-07-28] MEDS ORDERED: Metoclopramide 10 MG/2 ML SDV IVPUSH PRN (07:38)
[2022-07-28] MEDS ORDERED: droPERidol 5 MG/2 ML SDV IVPUSH PRN (07:38)
[2022-07-28] MEDS ORDERED: Naloxone 0.4 MG/ML SDV IVPUSH PRN (07:38)
[2022-07-28] MEDS ORDERED: HYDROmorphone 1 MG/ML Syringe IVPUSH PRN (07:38)
[2022-07-28] MEDS ORDERED: fentaNYL 50 MCG/ML SDV IVPUSH PRN (07:38)
[2022-07-28] MEDS ORDERED: Ondansetron 4 MG/2 ML SDV IVPUSH PRN (07:38)
[2022-07-28] MEDS ORDERED: Morphine 2 MG/ML SYRINGE IVPUSH PRN (07:38)
[2022-07-28] MEDS ORDERED: Rocuronium Bromide 50 MG/5 ML Syringe ONE (07:39)
[2022-07-28] MEDS ORDERED: Dexamethasone 4 MG/ML 5 ML MDV ONE (07:39)
[2022-07-28] MEDS ORDERED: Ketorolac 30 MG/ML SDV ONE (07:39)
[2022-07-28] MEDS ORDERED: Lidocaine 2% 5 ML SDV ONE (07:39)
[2022-07-28] MEDS ORDERED: Sugammadex Sodium 200 MG/2 ML VIAL ONE (07:39)
[2022-07-28] MEDS ORDERED: Propofol 200 MG/20 ML SDV ONE (07:39)
[2022-07-28] MEDS ORDERED: fentaNYL 100 MCG/2 ML SDV ONE ×2 (07:39→08:37)
[2022-07-28 13:05] VITALS: BP 102/60; PULSE 71
== END 2022-07-28 13:50 | disposition home or self-care (01) ==
LOC: MW.SDS 06:41
PROVIDERS: ATTEND Surgery
DX: K80.10 Calculus of gallbladder with chronic cholecystitis without obstruction (principal); K42.9 Umbilical hernia without obstruction or gangrene; M19.90 Unspecified osteoarthritis, unspecified site; J45.909 Unspecified asthma, uncomplicated; E78.00 Pure hypercholesterolemia, unspecified; K21.9 Gastro-esophageal reflux disease without esophagitis; E66.9 Obesity, unspecified; Z79.899 Other long term (current) drug therapy; Z87.891 Personal history of nicotine dependence
CPT/HCPCS: 47562; 49591; A9270; J0131; J1100; J1170; J1885; J2704; J2795; J3010; J3490; J7030; J7120

== ENCOUNTER 2022-08-23 14:07 | Emergency (ER) | payer OTHER ==
[2022-08-23 15:40] VITALS: BP 127/78; PULSE 68
[2022-08-23] MEDS ORDERED: Sodium Chloride 0.9% 10 ML Syringe FLUSH PRN (16:18)
[2022-08-23] MEDS ORDERED: Sodium Chloride 0.9% 2.5 ML Syringe FLUSH PRN (16:18)
[2022-08-23] MEDS ORDERED: Sodium Chloride 0.9% 1,000 ML IV STA (16:19)
[2022-08-23] MEDS ORDERED: Pantoprazole 40 MG in Sodium Chloride 0.9% 10 ML IVPUSH STA (16:29)
== END 2022-08-23 16:44 | disposition left against medical advice (07) ==
LOC: MW.ED 14:07
DX: R10.13 Epigastric pain (principal); Z87.891 Personal history of nicotine dependence
CPT/HCPCS: 99283

== ENCOUNTER 2022-10-27 10:05 | Day surgery (SDC) | payer OTHER ==
[~2022-10-27 10:05] MED LIST changes: +Albuterol 0.083% 2.5 MG/3 ML Neb Soln NEB PRN; +HYDROmorphone 1 MG/ML Syringe IVPUSH PRN; +Metoclopramide 10 MG/2 ML SDV IVPUSH PRN; +Morphine 2 MG/ML SYRINGE IVPUSH PRN; +Naloxone 0.4 MG/ML SDV IVPUSH PRN; +Ondansetron 4 MG/2 ML SDV IVPUSH PRN; +ceFAZolin 2 GM in Sodium Chloride 0.9% 50 ML IV ONE; -cefOXitin 2 GM in Sodium Chloride 0.9% 50 ML IV SCH; +droPERidol 5 MG/2 ML SDV IVPUSH PRN; +fentaNYL 50 MCG/ML SDV IVPUSH PRN
[2022-10-27] MEDS ORDERED: Morphine 10 MG/ML SDV ONE (10:33)
[2022-10-27] MEDS ORDERED: fentaNYL 100 MCG/2 ML SDV ONE (10:33)
[2022-10-27] MEDS ORDERED: Rocuronium Bromide 50 MG/5 ML Syringe ONE (10:34)
[2022-10-27] MEDS ORDERED: Lidocaine 2% 100 MG/5 ML Syringe ONE ×2 (10:34)
[2022-10-27] MEDS ORDERED: propofoL 50 ML ONE ×3 (10:34→14:01)
[2022-10-27] MEDS ORDERED: Bupivacaine 0.25% 30 ML SDV ONE (10:43)
[2022-10-27] MEDS ORDERED: Ondansetron 4 MG/2 ML SDV ONE (10:52)
[2022-10-27] MEDS ORDERED: Scopolamine 1.5 MG Transdermal Patch ONE (11:17)
[2022-10-27] MEDS ORDERED: Dexamethasone 4 MG/ML 5 ML MDV ONE (11:23)
[2022-10-27] MEDS ORDERED: Bupivacaine 0.5% 30 ML SDV ONE ×2 (12:19→12:22)
[2022-10-27] MEDS ORDERED: ceFAZolin 2 GM Vial ONE (12:34)
[2022-10-27] MEDS ORDERED: Phenylephrine HCl 0.5 MG/5 ML AMP ONE (12:40)
[2022-10-27] MEDS ORDERED: ePHEDrine 50 MG/ML SDV ONE (12:42)
[2022-10-27] MEDS ORDERED: Calcium Chloride 10% 1 GM/10 ML Syringe ONE (12:55)
[2022-10-27] MEDS ORDERED: Sugammadex Sodium 200 MG/2 ML VIAL ONE (13:53)
[2022-10-27] MEDS ORDERED: Ketorolac 30 MG/ML SDV ONE (14:25)
[2022-10-27 16:17] VITALS: BP 116/72; PULSE 77
== END 2022-10-27 17:20 | disposition home or self-care (01) ==
LOC: MW.SDS 10:05
PROVIDERS: ATTEND Surgery
DX: D17.5 Benign lipomatous neoplasm of intra-abdominal organs (principal); K40.90 Unilateral inguinal hernia, without obstruction or gangrene, not specified as recurrent; J45.909 Unspecified asthma, uncomplicated; Z79.899 Other long term (current) drug therapy; Z98.890 Other specified postprocedural states
CPT/HCPCS: 49650; A9270; J0131; J0690; J1100; J2270; J2370; J2405; J2704; J3010; J3490; J7120; J1885

== ENCOUNTER 2023-09-11 16:03 | Inpatient (IN) | payer OTHER ==
[2023-09-11] MEDS: Piperacillin/Tazobactam 4.5 GM in Sodium Chloride 0.9% 100 ML IV ONE (16:43)
[2023-09-11] MEDS: Sodium Chloride 0.9% 10 ML Syringe FLUSH PRN (16:43)
[2023-09-11] MEDS: Sodium Chloride 0.9% 2.5 ML Syringe FLUSH PRN (16:43)
[2023-09-11] MEDS: Sodium Chloride 0.9% 1,000 ML IV STA ×2 (16:43→18:18)
[2023-09-11 16:55] LABS: BASOPHILS ABSOLUTE AUTO 0.02 K/uL (0.00-0.20); BASOPHILS PERCENT AUTO 0.2 % (0.0-1.0); HEMOGLOBIN 12.3 g/dL (12.0-16.0); IMMATURE GRAN ABSOLUTE AUTO 0.06 K/uL (0.00-0.05); IMMATURE GRAN PERCENT AUTO 0.5 % (0.0-0.4); LYMPHOCYTES ABSOLUTE AUTO 0.95 K/uL (1.00-4.80); LYMPHOCYTES PERCENT AUTO 7.6 % (24.0-44.0); MEAN CORPUSCULAR HEMOGLOBIN 33.2 pg (28.0-32.0); MEAN CORPUSCULAR HGB CONC 36.2 g/dL (32.0-36.0); MEAN CORPUSCULAR VOLUME 91.6 fL (83.0-99.0); MEAN PLATELET VOLUME 9.4 fL (9.4-12.3); MONOCYTES ABSOLUTE AUTO 1.06 K/uL (0.00-0.80); MONOCYTES PERCENT AUTO 8.4 % (0.0-8.0); NEUTROPHILS ABSOLUTE AUTO 10.48 K/uL (1.80-7.70); NEUTROPHILS PERCENT AUTO 83.3 % (41.0-71.0); PLATELET COUNT,PLT 218 K/uL (150-400); RED BLOOD CELL COUNT 3.71 M/uL (4.10-5.30); WHITE BLOOD CELL COUNT,WBC 12.57 K/uL (3.9-11.3)
[2023-09-11] MEDS: Acetaminophen 325 MG Tab PO ONE (17:17)
[2023-09-11] MEDS: VANCOmycin 1.75 GM/350 ML 1.75 GM in Premix Bag 1 BAG IV ONE (17:17)
[2023-09-11 17:19] LABS: A/G RATIO 0.8 (0.9-1.6); ALBUMIN 3.5 g/dL (3.4-5.0); BILIRUBIN TOTAL 0.8 mg/dL (0.2-1.0); CALCIUM 8.9 mg/dL (8.5-10.1); CREATININE 0.9 mg/dL (0.6-1.0); EST CRCL DRUG DOSING (CG) 54.3 mL/min; POTASSIUM,K 3.6 mmol/L (3.5-5.1); PROTEIN TOTAL,TP 7.9 g/dL (6.4-8.2)
[2023-09-11 17:20] LABS: BILIRUBIN,URINE NEGATIVE (NEGATIVE); COLOR,URINE YELLOW; GLUCOSE,URINE NEGATIVE (NEGATIVE); KETONES,URINE TRACE mg/dL (NEGATIVE); LEUKOCYTE ESTERASE,URINE TRACE (NEGATIVE); NITRITE,URINE NEGATIVE (NEGATIVE); OCCULT BLOOD,URINE MODERATE (NEGATIVE); PROTEIN,URINE TRACE mg/dL (NEGATIVE)
[2023-09-11 17:22] LABS: LACTIC ACID 0.9 mmol/L (0.4-2.0)
[2023-09-11 17:26] LABS: CORONAVIRUS COVID-19 NAA NEGATIVE (NEGATIVE); INFLUENZA A NAA NEGATIVE (NEGATIVE); INFLUENZA B NAA NEGATIVE (NEGATIVE); RESPIRATORY SYNCYTIAL VIR NAA NEGATIVE (NEGATIVE)
[2023-09-11 17:30] LABS: APPEARANCE,URINE SLT CLOUDY; BACTERIA,URINE 2+ (NEGATIVE); EPITHELIAL CELLS,URINE FEW (NONE-FEW); MUCUS,URINE MODERATE (NONE-MOD)
[2023-09-11] MEDS: Iopamidol 755 MG/ML 500 ML Multipack Bottle IVPUSH STA (18:00)
[2023-09-11] MEDS ORDERED: Sodium Chloride 0.9% 400 ML IV STA (18:55)
[2023-09-11] MEDS: Albuterol 0.083% 2.5 MG/3 ML Neb Soln NEB ONE (19:16)
[2023-09-11] MEDS: Albuterol/Ipratropium 3.0-0.5 MG/3 ML Neb Soln NEB ONE (19:17)
[2023-09-11] MEDS ORDERED: Melatonin 3 MG Tab PO PRN (20:21)
[2023-09-11] MEDS ORDERED: Polyethylene Glycol 3350 Powder 17 GM Packet PO PRN (20:21)
[2023-09-11] MEDS ORDERED: Acetaminophen 650 MG Supp RECTAL PRN (20:21)
[2023-09-11] MEDS ORDERED: Benzonatate 100 MG Cap PO PRN (20:27)
[2023-09-11 21:12] LABS: A/G RATIO 0.7 (0.9-1.6); ALBUMIN 2.9 g/dL (3.4-5.0); BILIRUBIN TOTAL 0.9 mg/dL (0.2-1.0); CALCIUM 7.9 mg/dL (8.5-10.1); CARBON DIOXIDE,CO2 19.7 mmol/L (21.0-32.0); CREATININE 0.9 mg/dL (0.6-1.0); EST CRCL DRUG DOSING (CG) 54.3 mL/min; POTASSIUM,K 3.4 mmol/L (3.5-5.1); PROTEIN TOTAL,TP 7.2 g/dL (6.4-8.2)
[2023-09-11] MEDS: Ondansetron 4 MG/2 ML SDV IVPUSH SCH (21:25)
[2023-09-11] MEDS: Piperacillin/Tazobactam 4.5 GM in Sodium Chloride 0.9% 100 ML IV SCH ×2 (21:25→22:01)
[2023-09-11] MEDS: Albuterol/Ipratropium 3.0-0.5 MG/3 ML Neb Soln NEB SCH (23:00)
[2023-09-12] MEDS: Sodium Chloride 0.9% 1,000 ML IV ONE (04:39)
[2023-09-12] MEDS: Acetaminophen 325 MG Tab PO PRN (04:39)
[2023-09-12 05:55] LABS: BASOPHILS ABSOLUTE AUTO 0.02 K/uL (0.00-0.20); BASOPHILS PERCENT AUTO 0.2 % (0.0-1.0); HEMATOCRIT 28.2 % (37.0-47.0); HEMOGLOBIN 9.5 g/dL (12.0-16.0); IMMATURE GRAN ABSOLUTE AUTO 0.04 K/uL (0.00-0.05); IMMATURE GRAN PERCENT AUTO 0.4 % (0.0-0.4); LYMPHOCYTES ABSOLUTE AUTO 0.86 K/uL (1.00-4.80); LYMPHOCYTES PERCENT AUTO 9.6 % (24.0-44.0); MEAN CORPUSCULAR HEMOGLOBIN 31.4 pg (28.0-32.0); MEAN CORPUSCULAR HGB CONC 33.7 g/dL (32.0-36.0); MEAN CORPUSCULAR VOLUME 93.1 fL (83.0-99.0); MONOCYTES ABSOLUTE AUTO 0.77 K/uL (0.00-0.80); MONOCYTES PERCENT AUTO 8.6 % (0.0-8.0); NEUTROPHILS ABSOLUTE AUTO 7.26 K/uL (1.80-7.70); NEUTROPHILS PERCENT AUTO 81.2 % (41.0-71.0); PLATELET COUNT,PLT 156 K/uL (150-400); RED BLOOD CELL COUNT 3.03 M/uL (4.10-5.30); WHITE BLOOD CELL COUNT,WBC 8.95 K/uL (3.9-11.3)
[2023-09-12] MEDS: Sodium Chloride 0.9% 1,000 ML IV SCH ×3 (07:43→10:03)
[2023-09-12] MEDS: Enoxaparin 40 MG/0.4 ML Syringe SUBCUT SCH (08:20)
[2023-09-12 09:09] LABS: CALCIUM 7.5 mg/dL (8.5-10.1); CARBON DIOXIDE,CO2 22.3 mmol/L (21.0-32.0); CREATININE 0.9 mg/dL (0.6-1.0); EST CRCL DRUG DOSING (CG) 54.3 mL/min; POTASSIUM,K 3.1 mmol/L (3.5-5.1)
[2023-09-12 09:15] LABS: LACTIC ACID 1.9 mmol/L (0.4-2.0)
[2023-09-12] MEDS: Azithromycin 500 MG in Sodium Chloride 0.9% 250 ML IV SCH (10:09)
[2023-09-12] MEDS: Potassium Chloride 20 MEQ Tab.ER PO SCH (11:03)
[2023-09-12] MEDS: Magnesium Sulfate/Water 2 GM in Premix Bag 1 BAG IV ONE (11:11)
[2023-09-12] MEDS: Topiramate 50 MG Tab PO SCH (11:25)
[2023-09-12] MEDS: Iopamidol 755 MG/ML 500 ML Multipack Bottle IVPUSH STA (14:14)
[2023-09-12] MEDS: Sodium Chloride 0.9% 500 ML IV SCH (16:50)
[2023-09-12] MEDS ORDERED: traMADol 50 MG Tab PO PRN (18:15)
[2023-09-12] MEDS: atorvaSTATin 10 MG Tab PO SCH (20:52)
[2023-09-12] MEDS ORDERED: DICLOFENAC SODIUM 75 MG PO PRN (21:00)
[2023-09-13] MEDS: Albuterol 0.083% 2.5 MG/3 ML Neb Soln NEB PRN (00:46)
[2023-09-13 05:43] LABS: BASOPHILS ABSOLUTE AUTO 0.03 K/uL (0.00-0.20); BASOPHILS PERCENT AUTO 0.4 % (0.0-1.0); EOSINOPHILS ABSOLUTE AUTO 0.01 K/uL (0.00-0.45); EOSINOPHILS PERCENT AUTO 0.1 % (0.0-6.0); HEMATOCRIT 27.6 % (37.0-47.0); HEMOGLOBIN 9.1 g/dL (12.0-16.0); IMMATURE GRAN ABSOLUTE AUTO 0.04 K/uL (0.00-0.05); IMMATURE GRAN PERCENT AUTO 0.5 % (0.0-0.4); LYMPHOCYTES ABSOLUTE AUTO 0.59 K/uL (1.00-4.80); LYMPHOCYTES PERCENT AUTO 7.4 % (24.0-44.0); MEAN CORPUSCULAR HEMOGLOBIN 31.5 pg (28.0-32.0); MEAN CORPUSCULAR VOLUME 95.5 fL (83.0-99.0); MEAN PLATELET VOLUME 9.8 fL (9.4-12.3); MONOCYTES ABSOLUTE AUTO 0.51 K/uL (0.00-0.80); MONOCYTES PERCENT AUTO 6.4 % (0.0-8.0); NEUTROPHILS ABSOLUTE AUTO 6.74 K/uL (1.80-7.70); NEUTROPHILS PERCENT AUTO 85.2 % (41.0-71.0); PLATELET COUNT,PLT 158 K/uL (150-400); RED BLOOD CELL COUNT 2.89 M/uL (4.10-5.30); WHITE BLOOD CELL COUNT,WBC 7.92 K/uL (3.9-11.3)
[2023-09-13] MEDS: Calcium Carbonate 500 MG Tab.Chew PO ONE (06:01)
[2023-09-13 06:11] LABS: CALCIUM 7.9 mg/dL (8.5-10.1); CARBON DIOXIDE,CO2 19.8 mmol/L (21.0-32.0); CREATININE 0.8 mg/dL (0.6-1.0); EST CRCL DRUG DOSING (CG) 61.09 mL/min; MAGNESIUM 2.2 mg/dL (1.8-2.4); POTASSIUM,K 3.6 mmol/L (3.5-5.1)
[2023-09-13] MEDS: methylPREDNISolone Sodium Succinate 40 MG/1 ML SDV IVPUSH ONE (14:27)
[2023-09-13] MEDS: Furosemide 20 MG/2 ML VIAL IVPUSH ONE ×2 (20:14→20:57)
[2023-09-13 20:41] LABS: BASE EXCESS ARTERIAL -8.6 (-2.0-3.0); BICARBONATE,ARTERIAL 18 mEq/L (22-26); PCO2 ARTERIAL 37 mmHG (35-45); PO2 ARTERIAL 52 mmHG (80-105)
[2023-09-13] MEDS: LORazepam 0.5 MG Tab PO ONE (20:56)
[2023-09-13 21:49] VITALS: BP 123/68; PULSE 101
== END 2023-09-13 22:00 | disposition still patient (30) | DRG 871 ==
LOC: MW.ED 16:03 → MW.MS 20:38
PROVIDERS: ADMIT Family Medicine; ATTEND Family Medicine
PROC: 4A033R1 Measurement of Arterial Saturation, Peripheral, Percutaneous Approach (ICD-10-PCS; principal; 2023-09-11)
PROC: 3E03329 Introduction of Other Anti-infective into Peripheral Vein, Percutaneous Approach (ICD-10-PCS; 2023-09-11)
DX: A41.9 Sepsis, unspecified organism (principal); J18.9 Pneumonia, unspecified organism; N30.01 Acute cystitis with hematuria; K40.90 Unilateral inguinal hernia, without obstruction or gangrene, not specified as recurrent; M25.562 Pain in left knee; Z75.8 Other problems related to medical facilities and other health care; G89.29 Other chronic pain; J45.909 Unspecified asthma, uncomplicated; R79.89 Other specified abnormal findings of blood chemistry; H54.7 Unspecified visual loss; M19.90 Unspecified osteoarthritis, unspecified site; Z79.899 Other long term (current) drug therapy; Z85.118 Personal history of other malignant neoplasm of bronchus and lung; Z90.49 Acquired absence of other specified parts of digestive tract; Z98.890 Other specified postprocedural states; Z87.891 Personal history of nicotine dependence
CPT/HCPCS: 0241U; 36415; 36600; 70450; 71045; 71260; 74177; 80048; 80053; 80202; 81001; 82803; 83605; 83735; 83880; 84484; 85025; 87040; 87086; 87641; 87899; 93306; 96365; 96366; 96367; 99285; 99222; 99232; 99239; A9270-GY; J0456; J1650; J1940; J2405; J2543; J2919; J3370; J3372; J3475; J3490; J7030; J7040; J7050; J7620-GY; Q9967

== ENCOUNTER 2024-02-08 06:39 | Day surgery (SDC) | payer OTHER ==
[~2024-02-08 06:39] MED LIST changes: -Albuterol 0.083% 2.5 MG/3 ML Neb Soln NEB PRN; -HYDROmorphone 1 MG/ML Syringe IVPUSH PRN; -Metoclopramide 10 MG/2 ML SDV IVPUSH PRN; -Morphine 2 MG/ML SYRINGE IVPUSH PRN; -Naloxone 0.4 MG/ML SDV IVPUSH PRN; -Ondansetron 4 MG/2 ML SDV IVPUSH PRN; -Scopolamine 1.5 MG Transdermal Patch TOP ONE; -droPERidol 5 MG/2 ML SDV IVPUSH PRN; -fentaNYL 50 MCG/ML SDV IVPUSH PRN
[2024-02-08] MEDS: Lactated Ringers 1,000 ML IV SCH (07:04)
[2024-02-08] MEDS ORDERED: Rocuronium Bromide 50 MG/5 ML Syringe ONE ×2 (07:19→09:00)
[2024-02-08] MEDS ORDERED: fentaNYL 100 MCG/2 ML SDV ONE (07:19)
[2024-02-08] MEDS ORDERED: Ondansetron 4 MG/2 ML SDV ONE (07:19)
[2024-02-08] MEDS ORDERED: Propofol 200 MG/20 ML SDV ONE (07:19)
[2024-02-08] MEDS ORDERED: Magnesium Sulfate (4.06 MEQ/ML) 5 GM/10 ML SDV ONE (07:19)
[2024-02-08] MEDS ORDERED: Lidocaine 1% 5 ML VIAL ONE (07:19)
[2024-02-08] MEDS ORDERED: Lidocaine 2% 5 ML SDV ONE (07:20)
[2024-02-08] MEDS ORDERED: Bupivacaine 0.5% 30 ML SDV ONE (07:24)
[2024-02-08] MEDS ORDERED: Phenylephrine HCl In 0.9% NaCl 1 MG/10 ML Syringe IVPUSH PRN (07:37)
[2024-02-08] MEDS ORDERED: Morphine 2 MG/ML SYRINGE IVPUSH PRN (07:37)
[2024-02-08] MEDS ORDERED: Ondansetron 4 MG/2 ML SDV IVPUSH PRN (07:37)
[2024-02-08] MEDS ORDERED: Albuterol 0.083% 2.5 MG/3 ML Neb Soln NEB PRN (07:37)
[2024-02-08] MEDS ORDERED: Metoclopramide 10 MG/2 ML SDV IVPUSH PRN (07:37)
[2024-02-08] MEDS ORDERED: Naloxone 0.4 MG/ML SDV IVPUSH PRN (07:37)
[2024-02-08] MEDS ORDERED: Albuterol/Ipratropium 3.0-0.5 MG/3 ML Neb Soln ONE (07:39)
[2024-02-08] MEDS ORDERED: Morphine 10 MG/ML SDV ONE (07:47)
[2024-02-08] MEDS ORDERED: Ropivacaine 0.5% 5 MG/ML 30 ML SDV ONE (07:48)
[2024-02-08] MEDS: Pregabalin 75 MG Cap PO SCH (07:50)
[2024-02-08] MEDS ORDERED: Phenylephrine HCl In 0.9% NaCl 1 MG/10 ML Syringe ONE (08:16)
[2024-02-08] MEDS ORDERED: ceFAZolin 2 GM Vial ONE (08:24)
[2024-02-08] MEDS ORDERED: Glycopyrrolate 0.2 MG/ML SDV ONE (09:33)
[2024-02-08] MEDS ORDERED: Sugammadex Sodium 200 MG/2 ML VIAL IV ONE (09:47)
[2024-02-08] MEDS: HYDROmorphone 1 MG/ML Syringe IVPUSH PRN (10:38)
[2024-02-08] MEDS: fentaNYL 50 MCG/ML SDV IVPUSH PRN (10:48)
[2024-02-08 14:14] VITALS: BP 106/84; PULSE 82
== END 2024-02-08 14:10 | disposition home or self-care (01) ==
LOC: MW.SDS 06:39
PROVIDERS: ATTEND Surgery
DX: K43.0 Incisional hernia with obstruction, without gangrene (principal); I50.9 Heart failure, unspecified; Z87.891 Personal history of nicotine dependence; Z79.899 Other long term (current) drug therapy
CPT/HCPCS: 49616; 64488; A9270; J0131; J0665; J0690; J1171; J1596; J2272; J2371; J2704; J2795; J3010; J3490; J7120; J2405; J7620-GY